=== PATIENT | female | born 1970 | race Hispanic/Latino ===

== ENCOUNTER 2025-06-21 19:19 | Emergency (ER) | payer BC, OTHER ==
[~2025-06-21] VITALS: Ht 162.6 cm; Wt 69.4 kg
[2025-06-21 20:17] LABS: IMMATURE GRANULOCYTE ABSOLUTE 0.07 K/uL (0-1); NUCLEATED RED BLOOD CELLS 0.0 % (0.0-0.19); PLATELET COUNT (AUTO) 383 K/uL (130-400); RED BLOOD CELL COUNT(AUTO) 4.27 MIL/uL (4.00-5.50); RED CELL DISTRIBUTION WIDTH 12.4 % (11.0-15.5); WHITE BLOOD COUNT (AUTO) 12.8 K/uL (4.8-10.8)
[2025-06-21 20:26] LABS: CREATININE 0.6 mg/dL (0.5-1.0); GLOMERULAR FILTR. RATE CALC 107.0 mL/min (>90); GLUCOSE,RANDOM 98.0 mg/dL (70-105); SODIUM SERUM 137.0 mmol/L (136-145); UREA NITROGEN, BLOOD 16.0 mg/dL (7-18)
[2025-06-21] MEDS ORDERED: IOHEXOL-350 75 ML VIAL IV ONE (20:43)
--- NOTE | 2025-06-21 21:56 | HMCIMG ---
EXAM: CT Femur, Right, With and Without IV Contrast. CLINICAL HISTORY: Patient presents with right thigh and leg pain, numbness, and concern for a mass. TECHNIQUE: Axial images were acquired through the right femur with and without intravenous contrast. Reformatted images were reviewed. CONTRAST: Omnipaque 350. COMPARISON: None provided. FINDINGS: BONES: No acute fracture. No lytic or blastic osseous lesion. JOINTS: No joint abnormality. No dislocation. The femoral head maintains normal shape. SOFT TISSUES: Small fat-containing right inguinal hernia. No focal soft tissue mass. IMPRESSION: No acute abnormality in the right femur. Small fat-containing right inguinal hernia. /[place]
--- NOTE | 2025-06-21 22:34 | ERN ---
General Chief Complaint: Multiple Complaints Stated Complaint: RT LEG PAIN Time Seen by MD: 19:28 Source: patient History of Present Illness Initial Comments 55-year-old female with concerns about right anterior thigh pain that starts whenever she is walking. She describes the pain as achy and it persists as long as she is walking. When she sits back down the pain disappears but she feels numbness extending over her entire thigh and leg and then it seems to migrate to posterior surface of her right lower extremity. Allergies: Coded Allergies: No Known Allergies (Unverified Allergy, Unknown, 06/21/25) Past Medical History Past Medical History: Diabetes-Type II, High Cholesterol Past Surgical History: Hysterectomy, None Surgical History Other: LEFT KNEE, RT WRIST Constitutional: (-) chills, (-) diaphoresis, (-) fever, (-) malaise, (-) weakness, (-) other documentation EENTM: (-) eye pain, (-) blurred vision, (-) tearing, (-) double vision, (-) ear pain, (-) ear discharge, (-) nose pain, (-) nose congestion, (-) throat pain, (-) Throat swelling, (-) mouth pain, (-) tooth pain, (-) mouth swelling, (-) other documentation Respiratory: (-) cough, (-) orthopnea, (-) short of breath, (-) stridor, (-) wheezing, (-) other documentation Cardiovascular: (-) chest pain, (-) edema, (-) palpitations, (-) syncope, (-) dyspnea on exertion, (-) other documentation Gastrointestinal/Abdominal: (-) nausea, (-) vomiting, (-) diarrhea, (-) abdominal pain, (-) abdominal distention, (-) constipation, (-) rectal bleeding, (-) dark stool/melena, (-) other documentation Genitourinary: (-) vaginal discharge, (-) vaginal bleeding, (-) dysuria, (-) frequency, (-) hematuria, (-) pain, (-) other documentation Musculoskeletal: (+) muscle pain (No muscle weakness in her right lower extremity); (-) Neck pain, (-) back pain, (-) Flank Pain, (-) joint pain, (-) joint swelling, (-) muscle stiffness, (-) gout, (-) other documentation Skin: (-) laceration, (-) contusion, (-) abrasion, (-) abscess, (-) rash, (-) change in color, (-) change in hair, (-) change in nails, (-) diaphoresis, (-) dryness, (-) other documentation Physical Exam General Appearance: (+) mild distress Orientation: (+) alert, (+) oriented x 3 Head/Face Trauma: No Eye: bilateral eye normal inspection, bilateral eye PERRL, bilateral eye EOMI Ear, Nose, Throat: (+) hearing grossly normal, (+) normal ENT inspection, (+) moist mucous membraine Neck: (+) normal inspection, (+) supple, (+) full range of motion Respiratory: (+) chest non-tender, (+) lungs clear, (+) well ventilated Heart: (+) regular, (+) no gallop Vascular: (+) no edema, (+) normal peripheral pulse Results Laboratory and Microbiology Lab and Micro Result Laboratory Tests Test 06/21/25 20:00 06/21/25 20:08 Urine HCG, Qualitative NEGATIVE (NEGATIVE) White Blood Count 12.8 K/uL (4.8-10.8) H Red Blood Count 4.27 MIL/uL (4.00-5.50) Hemoglobin 13.4 g/dL (12.0-16.0) Hematocrit 38.2 % (36-48) Mean Corpuscular Volume 89.5 fL (79-99) Mean Corpuscular Hemoglobin 31.4 pg (27.0-33.0) Mean Corpuscular Hemoglobin Concent 35.1 g/dL (32.0-36.0) Red Cell Distribution Width 12.4 % (11.0-15.5) Platelet Count 383 K/uL (130-400) Mean Platelet Volume 9.0 fL (7.5-10.5) Immature Granulocyte % (Auto) 0.5 % (0-1) Neutrophils (%) (Auto) 63.9 % (40.0-77.0) Lymphocytes (%) (Auto) 28.6 % (21.0-51.0) Monocytes (%) (Auto) 5.1 % (3.0-13.0) Eosinophils (%) (Auto) 1.5 % (0.0-8.0) Basophils (%) (Auto) 0.4 % (0.0-5.0) Neutrophils # (Auto) 8.2 K/uL (1.8-7.7) H Lymphocytes # (Auto) 3.7 K/uL (1.0-4.8) Monocytes # (Auto) 0.7 K/uL (0.1-1.0) Eosinophils # (Auto) 0.19 K/uL (0.00-0.70) Basophils # (Auto) 0.05 K/uL (0.00-0.20) Absolute Immature Granulocyte (auto 0.07 K/uL (0-1) Nucleated Red Blood Cells 0.0 % (0.0-0.19) Sodium Level 137 mmol/L (136-145) Potassium Level 3.1 mmol/L (3.5-5.1) L Chloride Level 97 mmol/L (101-111) L Carbon Dioxide Level 31 mmol/L (21-32) Blood Urea Nitrogen 16 mg/dL (7-18) Creatinine 0.6 mg/dL (0.5-1.0) Glomerular Filtration Rate Calc 107 mL/min (>90) Random Glucose 98 mg/dL (70-105) Total Calcium 8.7 mg/dL (8.5-10.1) MDM MDM: Differential diagnosis: Intermittent claudication, hernia, sacral nerve compression or lumbar nerve compression, occult mass, venous clots Rationale: Tests considered and ordered secondary to shared decision making include: Previous outside records reviewed: Old ER visits. Risk of complication and/or morbidity or mortality of patient management: None Medications-Per medication reconciliation Need for hospitalization: Patient does meet criteria for hospitalization. Need for emergency major/minor surgery: No There are no social concerns with this patient. Prescription drug management Prescriptions will include symptomatic care Patient's prior external medical records from other ER visits were reviewed by me as indicated. Prior testing and results from previous visits were reviewed. Prior tests were taken into account with medical decision making and resource utilization, independent historian/historians were used to obtain complete medical history. I independently interpreted the test that were performed, results were reviewed by me and considered findings on radiology if ordered. CT scan of the patient's pelvis and right lower extremity does show a right inguinal hernia. No masses. Veins and arteries are patent. Ultrasound also shows a right inguinal hernia. I believe the patient is nerve symptoms are due to the hernia causing compression on the nerves possibly arteries and veins in the femoral canal. ED Course Orders Procedure Category Date Status Time Basic Metabolic Panel LAB 06/21/25 Complete 19:46 Cbc With Differential LAB 06/21/25 Complete 19:46 ,Urine Test LAB 06/21/25 Complete 19:46 Ct Low Ext W/Wo CT 06/21/25 Resulted Contrast 19:46 Iohexol (Omnipaque) PHA 06/21/25 Complete 20:43 Us Soft Tissue Groin US 06/21/25 Taken 21:32 Current Medications Medications (Trade) Dose Ordered Sig/[place] Route PRN Reason Start Time Stop Time Status Last Admin Dose Admin Iohexol (Omnipaque) 75 ml STK-MED ONCE IV 06/21/25 20:43 06/21/25 20:43 DC Vital Signs Date Time Temp Pulse Resp B/P (MAP) Pulse Ox O2 Delivery O2 Flow Rate FiO2 06/21/25 21:21 97.9 77 20 124/80 98 Room Air* 0 06/21/25 19:29 97.9 80 20 128/84 98 Room Air* 0 06/21/25 19:20 97.9 80 20 128/84 98 Room Air DX & DISP Disposition: Discharge Departure Impression: Primary Impression: Right groin hernia Condition: Stable Assign Patient to: You have a right groin hernia, probably inguinal. Hernia is when intestinal contents push out of the abdominal cavity. Yours seems to be going through your right groin. I think the symptoms your experiencing are pressure from the hernia on the nerves that goes through the right groin. I would recommend following up with your primary care physician or surgeon to see about whether or not you want to have this hernia repaired. Currently I see no evidence of a mass or obstruction of your intestines or problems with the circulation to your right lower extremity. There are hernia belts that you can wear which may alleviate some of the symptoms of your hernia; however, these belts do not fix the hernia nor do they prevented from getting larger over time. They may help with the symptoms that you are experiencing. Referrals: GATO CARRASCO (PCP) MARTHA TREJO MD Jun 21, 2025 22:34
[2025-06-21] MEDS ORDERED: PREG25 PO (22:44)
[2025-06-21 22:45] VITALS: BP 122/82; PULSE 78; RESP 18; TEMP 98.6; O2SAT 99
--- NOTE | 2025-06-21 23:36 | HMCIMG ---
EXAMINATION: SOFT TISSUE ULTRASOUND OF THE RIGHT INGUINAL REGION. CLINICAL HISTORY: Hernia in the right inguinal or femoral region. COMPARISON: Prior CT 06/21/2025. TECHNIQUE: Transverse and longitudinal images were obtained in the right inguinal region. FINDINGS: There are lymph nodes that measure 2.2 x 0.8 x 1.1 cm and 1.6 x 0.4 x 0.8 cm in craniocaudal, AP, and transverse dimensions, respectively, in the right inguinal region. Hilar echoes are maintained. No increased vascularity. There is a right inguinal hernia that measures 3.2 x 0.8 cm with fat as contents. IMPRESSION: Right inguinal lymph nodes. Right inguinal hernia. /[place]
== END 2025-06-21 22:48 | disposition home or self-care (01) ==
LOC: EDH 19:19
DX: K40.90 Unilateral inguinal hernia, without obstruction or gangrene, not specified as recurrent (principal); E11.9 Type 2 diabetes mellitus without complications; E78.00 Pure hypercholesterolemia, unspecified; Z90.710 Acquired absence of both cervix and uterus
CPT/HCPCS: 99285; 73702; 80048; 85025; 81025; 36415; 76882; Q9967